=== PATIENT | female | born 1940 | race Caucasian/White ===

== ENCOUNTER 2018-02-27 11:52 | Inpatient (IN) | payer MEDICARE ==
[~2018-02-27] VITALS: Ht 154.9 cm; Wt 48.5 kg
[2018-02-27 12:47] LABS: Basophils # (auto) 0 uL; Basophils % (auto) 1.1 % (0.0-2.0); Eosinophils # (auto) 0 uL; Eosinophils % (auto) 0.9 % (0.0-7.0); Hematocrit 34.1 % (36.0-46.0); Hemoglobin 11.1 g/dL (12.2-16.2); Lymphocytes # (auto) 1.1 uL; Lymphocytes % (auto) 24.8 % (10.0-50.0); Mean Corpuscular Hemoglobin 30.4 pg (28.0-32.0); Mean Corpuscular Hgb Conc. 32.6 g/dL (32.0-36.0); Mean Corpuscular Volume 93.1 fL (80.0-100.0); Monocytes # (auto) 0.4 uL; Monocytes % (auto) 10.3 % (0.0-12.0); Neutrophils # (auto) 2.7 uL; Neutrophils % (auto) 62.9 % (37.0-80.0); Nucleated Red Blood Cells % 0.1 %; Platelet Count (auto) 270 10^3/uL (140-450); Red Blood Cells 3.66 10^6/uL (4.0-5.20); Red Cell Distribution Width 13.9 % (11.8-14.3); White Blood Cell 4.2 10^3/uL (4.4-10.8)
[2018-02-27 13:08] LABS: Alanine Aminotransferase 59 U/L (13-56); Albumin 3.3 g/dL (3.4-5.0); Alkaline Phosphatase 271 U/L (45-117); Anion Gap 7 (5-15); Aspartate Aminotransferase 45 U/L (15-37); BUN/Creatinine Ratio 17.4; Bilirubin, Total 0.4 mg/dL (0.2-1.0); Blood Urea Nitrogen 16 mg/dL (7-18); Calcium 8.6 mg/dL (8.5-10.1); Carbon Dioxide 26 mmol/L (21-32); Chloride 105 mmol/L (98-107); GFR African American 76 mL/min; GFR Non-African American 63 mL/min; Glucose 102 mg/dL (74-106); Magnesium 3.5 mg/dL (1.6-2.6); Potassium 4.9 mmol/L (3.5-5.1); Sodium 138 mmol/L (136-145); Total Protein 7.2 g/dL (6.4-8.2)
[2018-02-27 13:49] LABS: Amylase 67 U/L (25-115); Lipase 133 U/L (73-393)
[2018-02-27] MEDS: SODIUM CHLORIDE 0.9% 1,000 ML IV SCH (16:45)
[2018-02-27] MEDS ORDERED: ONDANSETRON HCL 4 MG/2 ML VIAL IV PRN (16:45)
[2018-02-27] MEDS ORDERED: cefTRIAXone 1GM/10ml IVPUSH 10 ML IV ONE (16:45)
[2018-02-27] MEDS ORDERED: PANTOPRAZOLE 40 MG/10 ML VIAL IV ONE (17:00)
[2018-02-27] MEDS ORDERED: CLOPIDOGREL BISULFATE 75 MG TAB PO ONE (17:00)
[2018-02-27] MEDS ORDERED: ASPirin 81 mg TAB PO ONE (17:00)
[2018-02-27 20:15] VITALS: BP 135/56
[2018-02-27] MEDS: HYDROcodone-ACET 5/325MG TAB PO PRN (20:54)
[2018-02-27] MEDS: ATORVASTATIN 20 MG TAB PO SCH (20:54)
[2018-02-27] MEDS: metroNIDAZOLE 500MG/100ML 100 ML IV SCH (21:20)
[2018-02-27 21:45] VITALS: BP 135/56
[2018-02-27 22:08] LABS: Urine Amorphous Crystal FEW /hpf (None Seen); Urine Bacteria NONE SEEN /hpf (None Seen); Urine Blood Negative /uL (Negative); Urine Hyaline Cast FEW /lpf (0 - 2); Urine Specific Gravity 1.012 (1.001-1.035); Urine WBC 2 /hpf (0 - 5)
[2018-02-27] MEDS ORDERED: ASPI-231 PO (22:31)
[2018-02-27] MEDS ORDERED: ATOR20TA PO (22:31)
[2018-02-28 05:00] VITALS: BP 108/50
[2018-02-28] MEDS: metroNIDAZOLE 500MG/100ML 100 ML IV SCH ×3 (05:44→21:50)
[2018-02-28 06:01] LABS: Basophils # (auto) 0 uL; Basophils % (auto) 1.1 % (0.0-2.0); Eosinophils # (auto) 0.1 uL; Eosinophils % (auto) 4.6 % (0.0-7.0); Hematocrit 31.1 % (36.0-46.0); Hemoglobin 10.4 g/dL (12.2-16.2); INR 0.99 (0.9-1.15); Lymphocytes # (auto) 0.6 uL; Lymphocytes % (auto) 23.4 % (10.0-50.0); Mean Corpuscular Hemoglobin 31.2 pg (28.0-32.0); Mean Corpuscular Hgb Conc. 33.4 g/dL (32.0-36.0); Mean Corpuscular Volume 93.5 fL (80.0-100.0); Monocytes # (auto) 0.4 uL; Monocytes % (auto) 13.2 % (0.0-12.0); Neutrophils # (auto) 1.6 uL; Neutrophils % (auto) 57.7 % (37.0-80.0); Nucleated Red Blood Cells % 0.2 %; Partial Thromboplastin Time 30.7 sec (22.64-33.71); Platelet Count (auto) 216 10^3/uL (140-450); Prothrombin Time 10.8 sec (9.37-12.3); Red Blood Cells 3.33 10^6/uL (4.0-5.20); Red Cell Distribution Width 13.6 % (11.8-14.3); White Blood Cell 2.7 10^3/uL (4.4-10.8)
[2018-02-28] MEDS: SODIUM CHLORIDE 0.9% 1,000 ML IV SCH ×2 (06:05→20:50)
[2018-02-28 06:16] LABS: Albumin 2.7 g/dL (3.4-5.0); BUN/Creatinine Ratio 17.3; Bilirubin, Total 0.3 mg/dL (0.2-1.0); Calcium 7.9 mg/dL (8.5-10.1); Potassium 4.2 mmol/L (3.5-5.1)
[2018-02-28] MEDS: cefTRIAXone 1GM/10ml IVPUSH 10 ML IV SCH (08:15)
[2018-02-28 08:56] VITALS: BP 134/57
[2018-02-28] MEDS: CLOPIDOGREL BISULFATE 75 MG TAB PO SCH (10:02)
[2018-02-28] MEDS: PANTOPRAZOLE 40 MG/10 ML VIAL IV SCH (10:02)
[2018-02-28] MEDS: ASPirin 81 mg TAB PO SCH (10:02)
[2018-02-28] MEDS: HYDROcodone-ACET 5/325MG TAB PO PRN ×2 (10:03→19:04)
[2018-02-28 12:44] VITALS: BP 145/72
[2018-02-28] MEDS: MORPHINE SULFATE 4 MG/ML SYR/VIAL IV PRN (14:44)
[2018-02-28 16:48] VITALS: BP 147/58
[2018-02-28 21:30] VITALS: BP 146/71
[2018-02-28] MEDS: ATORVASTATIN 20 MG TAB PO SCH (21:50)
[2018-03-01] MEDS: MORPHINE SULFATE 4 MG/ML SYR/VIAL IV PRN (02:08)
[2018-03-01 05:00] VITALS: BP 138/64
[2018-03-01] MEDS: metroNIDAZOLE 500MG/100ML 100 ML IV SCH ×3 (05:30→21:58)
[2018-03-01 06:02] LABS: Basophils # (auto) 0 uL; Basophils % (auto) 0.8 % (0.0-2.0); Eosinophils # (auto) 0.1 uL; Eosinophils % (auto) 1.3 % (0.0-7.0); Hematocrit 31.2 % (36.0-46.0); Hemoglobin 10.5 g/dL (12.2-16.2); Lymphocytes # (auto) 0.8 uL; Lymphocytes % (auto) 21.3 % (10.0-50.0); Mean Corpuscular Hemoglobin 31.4 pg (28.0-32.0); Mean Corpuscular Hgb Conc. 33.6 g/dL (32.0-36.0); Mean Corpuscular Volume 93.5 fL (80.0-100.0); Monocytes # (auto) 0.5 uL; Monocytes % (auto) 11.7 % (0.0-12.0); Neutrophils # (auto) 2.6 uL; Neutrophils % (auto) 64.9 % (37.0-80.0); Nucleated Red Blood Cells % 0.1 %; Platelet Count (auto) 211 10^3/uL (140-450); Red Blood Cells 3.34 10^6/uL (4.0-5.20); Red Cell Distribution Width 13.8 % (11.8-14.3)
[2018-03-01 09:00] VITALS: BP 123/74
[2018-03-01] MEDS: cefTRIAXone 1GM/10ml IVPUSH 10 ML IV SCH (09:16)
[2018-03-01] MEDS: PANTOPRAZOLE 40 MG/10 ML VIAL IV SCH (09:16)
[2018-03-01] MEDS: CLOPIDOGREL BISULFATE 75 MG TAB PO SCH (09:16)
[2018-03-01] MEDS: ASPirin 81 mg TAB PO SCH (09:16)
[2018-03-01] MEDS: SODIUM CHLORIDE 0.9% 1,000 ML IV SCH ×2 (12:23→22:05)
[2018-03-01 13:00] VITALS: BP 126/86
[2018-03-01 17:00] VITALS: BP 156/65
[2018-03-01 21:54] VITALS: BP 147/68
[2018-03-01] MEDS: METOPROLOL TARTRATE 25 MG TAB PO SCH (21:58)
[2018-03-01] MEDS: ATORVASTATIN 20 MG TAB PO SCH (21:59)
[2018-03-02 05:00] VITALS: BP 143/66
[2018-03-02] MEDS: metroNIDAZOLE 500MG/100ML 100 ML IV SCH ×2 (05:39→14:00)
[2018-03-02 08:00] VITALS: BP 122/70
[2018-03-02] MEDS: cefTRIAXone 1GM/10ml IVPUSH 10 ML IV SCH (09:22)
[2018-03-02] MEDS: PANTOPRAZOLE 40 MG/10 ML VIAL IV SCH (09:23)
[2018-03-02] MEDS: ASPirin 81 mg TAB PO SCH (09:23)
[2018-03-02] MEDS: METOPROLOL TARTRATE 25 MG TAB PO SCH (09:24)
[2018-03-02] MEDS: CLOPIDOGREL BISULFATE 75 MG TAB PO SCH (09:24)
[2018-03-02] MEDS: SODIUM CHLORIDE 0.9% 1,000 ML IV SCH (11:42)
[2018-03-02] MEDS ORDERED: METR500T PO (11:53)
[2018-03-02] MEDS ORDERED: HYDR-4683 PO (11:53)
[2018-03-02] MEDS ORDERED: LEVO500T21 PO (11:53)
[2018-03-02] MEDS ORDERED: CLOP75TA28 PO (11:53)
[2018-03-02] MEDS ORDERED: PANT40TA2 PO (11:53)
[2018-03-02 12:00] VITALS: BP 128/63
[2018-03-02 14:54] VITALS: BP 128/63
== END 2018-03-02 15:45 | disposition home health service (06) | DRG 445 ==
LOC: ER 11:59 → OVERFLOW 12:00 → WEST WING 20:15
PROVIDERS: ADMIT Internal Medicine; ATTEND Internal Medicine
DX: K80.00 Calculus of gallbladder with acute cholecystitis without obstruction (principal); E44.0 Moderate protein-calorie malnutrition; E78.5 Hyperlipidemia, unspecified; I10 Essential (primary) hypertension; Z60.2 Problems related to living alone; I25.10 Atherosclerotic heart disease of native coronary artery without angina pectoris; I71.4 Abdominal aortic aneurysm, without rupture; Z87.891 Personal history of nicotine dependence; Z95.5 Presence of coronary angioplasty implant and graft; Z79.899 Other long term (current) drug therapy; I25.2 Old myocardial infarction
CPT/HCPCS: 36415; 74176; 76700; 80053; 81001; 82150; 83690; 83735; 84484; 85025; 85610; 85730; 87081; 93005; 96374; 96375; 96376; C9113; J2405; J3490

== ENCOUNTER 2018-03-13 12:35 | Inpatient (IN) | payer MEDICARE ==
[~2018-03-13] VITALS: Ht 149.9 cm; Wt 49.2 kg
[~2018-03-13 12:35] MED LIST: ASPI-231 PO; ATOR20TA PO; CLOP75TA28 PO; HYDR-4683 PO; LEVO500T21 PO; METR500T PO; PANT40TA2 PO
[2018-03-13] MEDS ORDERED: SODIUM CHLORIDE 0.9% 1,000 ML IVB ONE (15:58)
[2018-03-13 16:41] LABS: Basophils # (auto) 0 uL; Basophils % (auto) 0.2 % (0.0-2.0); Eosinophils # (auto) 0 uL; Hematocrit 35.8 % (36.0-46.0); Hemoglobin 12.1 g/dL (12.2-16.2); Lymphocytes # (auto) 0.4 uL; Lymphocytes % (auto) 8.2 % (10.0-50.0); Mean Corpuscular Hemoglobin 30.5 pg (28.0-32.0); Mean Corpuscular Hgb Conc. 33.6 g/dL (32.0-36.0); Mean Corpuscular Volume 90.5 fL (80.0-100.0); Monocytes # (auto) 0.4 uL; Neutrophils # (auto) 4.5 uL; Neutrophils % (auto) 83.6 % (37.0-80.0); Nucleated Red Blood Cells % 0.1 %; Platelet Count (auto) 281 10^3/uL (140-450); Red Blood Cells 3.96 10^6/uL (4.0-5.20); Red Cell Distribution Width 14.1 % (11.8-14.3); White Blood Cell 5.4 10^3/uL (4.4-10.8)
[2018-03-13 16:58] LABS: Albumin 2.9 g/dL (3.4-5.0); BUN/Creatinine Ratio 19.7; Calcium 8.2 mg/dL (8.5-10.1); Potassium 3.8 mmol/L (3.5-5.1)
[2018-03-13 17:01] LABS: Total Protein 7.1 g/dL (6.4-8.2)
[2018-03-13 17:12] LABS: INR 1.07 (0.9-1.15); Partial Thromboplastin Time 30.1 sec (23.78-33.04); Prothrombin Time 11.4 sec (9.27-12.13)
[2018-03-13 17:14] LABS: Amylase 87 U/L (25-115); Lipase 171 U/L (73-393); Magnesium 2.2 mg/dL (1.6-2.6)
[2018-03-13] MEDS ORDERED: MORPHINE SULFATE 8mg/ml INJ SDV IV ONE (22:00)
[2018-03-13] MEDS ORDERED: ONDANSETRON HCL 4 MG/2 ML VIAL IV ONE (22:00)
[2018-03-13 23:33] LABS: Urine Bacteria NONE SEEN /hpf (None Seen); Urine Blood Negative /uL (Negative); Urine Mucus FEW (None Seen); Urine Specific Gravity 1.015 (1.001-1.035); Urine WBC 3 /hpf (0 - 5)
[2018-03-14] VITALS (7 sets, daily range): BP systolic 141–160; BP diastolic 68–78
[2018-03-14] MEDS ORDERED: IBUPROFEN 600 MG TAB PO PRN
[2018-03-14] MEDS ORDERED: MORPHINE SULFATE 8mg/ml INJ SDV IV PRN
[2018-03-14] MEDS ORDERED: ESOM1CAP12 PO (01:15)
[2018-03-14 06:35] LABS: Basophils # (auto) 0 uL; Basophils % (auto) 0.2 % (0.0-2.0); Eosinophils # (auto) 0 uL; Eosinophils % (auto) 0.1 % (0.0-7.0); Hematocrit 35.4 % (36.0-46.0); Hemoglobin 11.8 g/dL (12.2-16.2); Lymphocytes # (auto) 0.9 uL; Lymphocytes % (auto) 13.1 % (10.0-50.0); Mean Corpuscular Hemoglobin 30.4 pg (28.0-32.0); Mean Corpuscular Hgb Conc. 33.5 g/dL (32.0-36.0); Mean Corpuscular Volume 90.8 fL (80.0-100.0); Monocytes # (auto) 0.7 uL; Monocytes % (auto) 10.1 % (0.0-12.0); Neutrophils # (auto) 5.2 uL; Neutrophils % (auto) 76.5 % (37.0-80.0); Platelet Count (auto) 281 10^3/uL (140-450); White Blood Cell 6.8 10^3/uL (4.4-10.8)
[2018-03-14 06:40] LABS: Albumin 2.9 g/dL (3.4-5.0); Calcium 8.6 mg/dL (8.5-10.1); Potassium 3.5 mmol/L (3.5-5.1)
[2018-03-14 06:45] LABS: BUN/Creatinine Ratio 23.2
[2018-03-14 07:03] LABS: Bilirubin, Total 1.1 mg/dL (0.2-1.0); Total Protein 6.6 g/dL (6.4-8.2)
[2018-03-14] MEDS ORDERED: GASTROGRAFIN 30 ML SOL ONE (10:19)
[2018-03-14] MEDS: PANTOPRAZOLE 40 MG TAB PO SCH (10:52)
[2018-03-14] MEDS ORDERED: IOHEXOL 300 MG/ML 100ML BOTTLE IJ ONE (12:13)
[2018-03-14] MEDS: CLOPIDOGREL BISULFATE 75 MG TAB PO SCH (15:17)
[2018-03-14] MEDS: MORPHINE SULFATE 10 MG/ML INJ 1ML SDV IV PRN (18:53)
[2018-03-14] MEDS: ATORVASTATIN 20 MG TAB PO SCH (23:46)
[2018-03-15 05:00] VITALS: BP 156/73
[2018-03-15 08:00] VITALS: BP 143/68
[2018-03-15 08:46] VITALS: BP 143/68
[2018-03-15] MEDS ORDERED: MIDAZOLAM HCL 1MG/1ML-2 ML VIAL ONE (08:52)
[2018-03-15] MEDS ORDERED: fentaNYL CITRATE 100 MCG/2 ML VL ONE (08:52)
[2018-03-15] MEDS ORDERED: LIDOCAINE 2% (LOCAL ANESTH.) PF 5ml SDV ONE (09:00)
[2018-03-15] MEDS: CLOPIDOGREL BISULFATE 75 MG TAB PO SCH (10:00)
[2018-03-15] MEDS: MORPHINE SULFATE 10 MG/ML INJ 1ML SDV IV PRN ×2 (10:28→16:00)
[2018-03-15 12:41] VITALS: BP 132/56
[2018-03-15] MEDS: PANTOPRAZOLE 40 MG TAB PO SCH (15:59)
[2018-03-15 17:00] VITALS: BP 130/50
[2018-03-15] MEDS: ATORVASTATIN 20 MG TAB PO SCH (21:11)
[2018-03-15] MEDS: BOOST PLUS 8 ounce PO SCH (21:56)
[2018-03-15 22:00] VITALS: BP 119/56
[2018-03-16 05:00] VITALS: BP 126/59
[2018-03-16] MEDS: BOOST PLUS 8 ounce PO SCH ×3 (06:00→21:21)
[2018-03-16 09:00] VITALS: BP 125/57
[2018-03-16] MEDS: CLOPIDOGREL BISULFATE 75 MG TAB PO SCH (10:19)
[2018-03-16] MEDS: PANTOPRAZOLE 40 MG TAB PO SCH (10:19)
[2018-03-16] MEDS: MORPHINE SULFATE 10 MG/ML INJ 1ML SDV IV PRN ×3 (10:20→22:17)
[2018-03-16] MEDS: ONDANSETRON HCL 4 MG/2 ML VIAL IV PRN ×3 (10:20→22:16)
[2018-03-16 13:00] VITALS: BP 133/58
[2018-03-16 17:00] VITALS: BP 114/52
[2018-03-16] MEDS: ATORVASTATIN 20 MG TAB PO SCH (21:20)
[2018-03-16 22:00] VITALS: BP 130/50
[2018-03-16] MEDS ORDERED: MORPHINE SULFATE 4 MG/ML SYR/VIAL ONE (22:09)
[2018-03-17 05:00] VITALS: BP 128/61
[2018-03-17] MEDS ORDERED: MORPHINE SULFATE 4 MG/ML SYR/VIAL ONE (05:53)
[2018-03-17] MEDS: BOOST PLUS 8 ounce PO SCH ×3 (05:57→22:00)
[2018-03-17 08:15] VITALS: BP 119/56
[2018-03-17] MEDS: PANTOPRAZOLE 40 MG TAB PO SCH (10:11)
[2018-03-17] MEDS: CLOPIDOGREL BISULFATE 75 MG TAB PO SCH (10:11)
[2018-03-17] MEDS: D5W/SOD CHLO 0.9% 1,000 ML IV SCH (11:15)
[2018-03-17 11:37] VITALS: BP 140/80
[2018-03-17 16:54] VITALS: BP 124/50
[2018-03-17] MEDS: HYDROmorphone HCL 2 MG/ML VL IV PRN (20:04)
[2018-03-17] MEDS: ATORVASTATIN 20 MG TAB PO SCH (21:41)
[2018-03-17 22:00] VITALS: BP 113/50
[2018-03-18] MEDS: D5W/SOD CHLO 0.9% 1,000 ML IV SCH ×3 (01:18→17:15)
[2018-03-18 05:00] VITALS: BP 113/49
[2018-03-18] MEDS: BOOST PLUS 8 ounce PO SCH ×3 (06:00→22:00)
[2018-03-18] MEDS: HYDROmorphone HCL 2 MG/ML VL IV PRN ×4 (06:08→21:33)
[2018-03-18 08:00] VITALS: BP 119/59
[2018-03-18] MEDS: CLOPIDOGREL BISULFATE 75 MG TAB PO SCH (10:22)
[2018-03-18] MEDS: PANTOPRAZOLE 40 MG TAB PO SCH (10:22)
[2018-03-18 12:00] VITALS: BP 117/51
[2018-03-18 15:00] VITALS: BP 116/59
[2018-03-18] MEDS: ATORVASTATIN 20 MG TAB PO SCH (21:31)
[2018-03-18 22:00] VITALS: BP 117/54
[2018-03-19 05:00] VITALS: BP 101/42
[2018-03-19] MEDS: BOOST PLUS 8 ounce PO SCH ×3 (06:00→21:47)
[2018-03-19] MEDS: D5W/SOD CHLO 0.9% 1,000 ML IV SCH ×3 (06:34→23:21)
[2018-03-19] MEDS: HYDROmorphone HCL 2 MG/ML VL IV PRN ×2 (06:47→10:47)
[2018-03-19 08:00] VITALS: BP 97/43
[2018-03-19 08:51] VITALS: BP 97/43
[2018-03-19] MEDS: PANTOPRAZOLE 40 MG TAB PO SCH (10:46)
[2018-03-19] MEDS: CLOPIDOGREL BISULFATE 75 MG TAB PO SCH (10:46)
[2018-03-19 13:00] VITALS: BP 114/50
[2018-03-19 16:57] VITALS: BP 120/60
[2018-03-19] MEDS: ATORVASTATIN 20 MG TAB PO SCH (21:47)
[2018-03-19 22:00] VITALS: BP 122/61
[2018-03-20 05:01] VITALS: BP 138/60
[2018-03-20] MEDS: BOOST PLUS 8 ounce PO SCH ×3 (06:00→22:29)
[2018-03-20 09:00] VITALS: BP 133/65
[2018-03-20] MEDS: PANTOPRAZOLE 40 MG TAB PO SCH (10:27)
[2018-03-20] MEDS: CLOPIDOGREL BISULFATE 75 MG TAB PO SCH (10:27)
[2018-03-20] MEDS: D5W/SOD CHLO 0.9% 1,000 ML IV SCH (10:29)
[2018-03-20] MEDS: HYDROcodone-ACET 5/325MG TAB PO PRN ×2 (11:20→18:35)
[2018-03-20 13:00] VITALS: BP 129/54
[2018-03-20 16:42] VITALS: BP 119/57
[2018-03-20 20:00] VITALS: BP 134/62
[2018-03-20 22:00] VITALS: BP 134/62
[2018-03-20] MEDS: ATORVASTATIN 20 MG TAB PO SCH (22:27)
[2018-03-21] MEDS: D5W/SOD CHLO 0.9% 1,000 ML IV SCH (02:10)
[2018-03-21 05:00] VITALS: BP 131/60
[2018-03-21] MEDS: BOOST PLUS 8 ounce PO SCH (06:00)
[2018-03-21 08:09] VITALS: BP 131/59
[2018-03-21] MEDS: CLOPIDOGREL BISULFATE 75 MG TAB PO SCH (09:56)
[2018-03-21] MEDS: PANTOPRAZOLE 40 MG TAB PO SCH (09:56)
[2018-03-21] MEDS: HYDROcodone-ACET 5/325MG TAB PO PRN (10:04)
[2018-03-21] MEDS ORDERED: MORPHINE SULF INJ 2 MG/ML SYRINGE 1ML IV PRN (12:00)
[2018-03-21] MEDS ORDERED: LORazepam 2MG/ML-1ML VIAL IV PRN (12:00)
[2018-03-21] MEDS ORDERED: ONDANSETRON HCL 4 MG/2 ML VIAL IV PRN (12:00)
[2018-03-21 12:16] VITALS: BP 113/49
[2018-03-21 16:41] VITALS: BP 133/66
== END 2018-03-21 18:30 | disposition hospice, home (50) | DRG 435 ==
LOC: ER 12:35 → TELE 12:36 → TELE-WESTW 03-14 01:40 → WEST WING 03-20 11:21
PROVIDERS: ADMIT Nurse Practitioner Family; ATTEND Family Medicine
PROC: 0FB03ZX Excision of Liver, Percutaneous Approach, Diagnostic (ICD-10-PCS; principal; 2018-03-15)
DX: C78.7 Secondary malignant neoplasm of liver and intrahepatic bile duct (principal); E43 Unspecified severe protein-calorie malnutrition; I50.42 Chronic combined systolic (congestive) and diastolic (congestive) heart failure; K80.62 Calculus of gallbladder and bile duct with acute cholecystitis without obstruction; I11.0 Hypertensive heart disease with heart failure; K57.90 Diverticulosis of intestine, part unspecified, without perforation or abscess without bleeding; I71.4 Abdominal aortic aneurysm, without rupture; D64.9 Anemia, unspecified; E78.00 Pure hypercholesterolemia, unspecified; E78.5 Hyperlipidemia, unspecified; I25.10 Atherosclerotic heart disease of native coronary artery without angina pectoris; E77.8 Other disorders of glycoprotein metabolism; K21.9 Gastro-esophageal reflux disease without esophagitis; Z51.5 Encounter for palliative care; Z79.82 Long term (current) use of aspirin; Z95.5 Presence of coronary angioplasty implant and graft; Z68.21 Body mass index [BMI] 21.0-21.9, adult
CPT/HCPCS: 10022; 36415; 71045; 71260; 74176; 74177; 76705; 76942; 80053; 81001; 82150; 82378; 83615; 83690; 83735; 83880; 84484; 85025; 85610; 85730; 86300; 86301; 93005; 94761; J2250; J2270; J2405; J7042